=== PATIENT | female | born 1945 | race Caucasian/White ===

== ENCOUNTER 2017-04-30 06:57 | Emergency (ER) | payer OTHER, MEDICAID ==
[~2017-04-30] VITALS: Ht 152.4 cm; Wt 86.2 kg
[~2017-04-30 06:57] MED LIST: BENA20TA2 PO; METF1000 PO; PARO20TA51 PO
[2017-04-30 07:14] VITALS: BP_SYST 135
[2017-04-30] MEDS ORDERED: ONDANSETRON 4 MG ODT TAB PO ONE (07:15)
[2017-04-30] MEDS ORDERED: MORPHINE 4 MG/ML INJ. SYRINGE IVP ONE (08:45)
[2017-04-30 09:38] LABS: BASOPHILS % (AUTO) 0.5 % (0.0-2.0); EOSINOPHILS # (AUTO) 0.1 K/uL (0.0-0.4); HEMATOCRIT 39.5 % (36-48); HEMOGLOBIN 13.1 g/dL (12.0-16.0); LYMPHOCYTES # (AUTO) 0.9 K/uL (1.0-5.5); LYMPHOCYTES % (AUTO) 16.3 % (20.5-51.5); MEAN CORPUSCULAR HEMOGLOBIN 29 pg (27-31); MEAN CORPUSCULAR HGB CONC 33 % (32-36); MEAN CORPUSCULAR VOLUME 86 fL (79.0-98.0); MONOCYTES # (AUTO) 0.3 K/uL (0.0-1.0); MONOCYTES % (AUTO) 5.7 % (1.7-9.3); NEUTROPHILS % (AUTO) 75.5 % (40.0-70.0); PLATELET COUNT (AUTO) 312 K/uL (130-430); RED CELL DISTRIBUTION WIDTH 12.7 % (9.0-15.0); WHITE BLOOD COUNT (AUTO) 5.3 K/uL (4.8-10.8)
[2017-04-30 09:52] LABS: ALANINE AMINOTRANSFERASE 46 U/L (12-78); ALBUMIN 3.7 g/dL (3.4-4.8); AMYLASE 32 U/L (0-100); ANION GAP 11 (5-15); ASPARTATE AMINOTRANSFERASE 20 U/L (10-37); CALCIUM 9.5 mg/dL (8.4-11.0); CHLORIDE 105 mmol/L (98-107); CREATININE 0.58 mg/dL (0.55-1.30); GLUCOSE 184 mg/dL (70-99); LIPASE 62 U/L (73-393); POTASSIUM 3.5 mmol/L (3.5-5.1); PROTHROMBIN TIME 10.2 SECS (9.5-12.5); SODIUM SERUM 141 mmol/L (136-145); TOTAL BILIRUBIN 0.6 mg/dL (0.0-1.0); UREA NITROGEN, BLOOD 20 mg/dL (8-21)
[2017-04-30 09:59] LABS: BILIRUBIN,URINE NEGATIVE (NEGATIVE); BLOOD, URINE NEGATIVE (NEGATIVE); CLARITY/URINE SL HAZY (CLEAR); COLOR,URINE YELLOW (YELLOW); GLUCOSE,URINE NEGATIVE (NEGATIVE); KETONES,URINE 2+ (NEGATIVE); LEUKOCYTE ESTERASE ,URINE NEGATIVE (NEGATIVE); NITRITE, URINE NEGATIVE (NEGATIVE); PROTEIN URINE TRACE (NEGATIVE); UROBILINOGEN,URINE 0.2 (0.2-1.0)
[2017-04-30 10:45] VITALS: BP_SYST 134
== END 2017-04-30 10:45 | disposition home or self-care (01) ==
LOC: SED 06:57
DX: K42.9 Umbilical hernia without obstruction or gangrene (principal); N83.209 Unspecified ovarian cyst, unspecified side; R10.13 Epigastric pain; E11.9 Type 2 diabetes mellitus without complications
CPT/HCPCS: 36415; 74176; 80053; 81003; 82150; 83690; 84484; 85025; 85610; 85730; 96374; 99285; J2270; Q0162

== ENCOUNTER 2017-06-20 10:49 | Inpatient (IN) | payer OTHER, MEDICAID ==
[~2017-06-20] VITALS: Ht 154.9 cm; Wt 81.6 kg
[~2017-06-20 10:49] MED LIST changes: +PARO-63 PO; -PARO20TA51 PO
[2017-06-20 11:00] VITALS: BP_SYST 163
[2017-06-20] MEDS ORDERED: NACL 0.9% 1,000 ML IV ONE (11:22)
[2017-06-20 11:48] LABS: BASOPHILS % (AUTO) 0.4 % (0.0-2.0); EOSINOPHILS # (AUTO) 0.1 K/uL (0.0-0.4); EOSINOPHILS % (AUTO) 1.6 % (0.0-4.0); HEMATOCRIT 40.7 % (36-48); HEMOGLOBIN 13.5 g/dL (12.0-16.0); LYMPHOCYTES # (AUTO) 0.9 K/uL (1.0-5.5); LYMPHOCYTES % (AUTO) 11.1 % (20.5-51.5); MEAN CORPUSCULAR HEMOGLOBIN 29 pg (27-31); MEAN CORPUSCULAR HGB CONC 33 % (32-36); MEAN CORPUSCULAR VOLUME 88 fL (79.0-98.0); MONOCYTES # (AUTO) 0.3 K/uL (0.0-1.0); MONOCYTES % (AUTO) 3.8 % (1.7-9.3); NEUTROPHILS # (AUTO) 6.7 K/uL (1.8-7.7); NEUTROPHILS % (AUTO) 83.1 % (40.0-70.0); PLATELET COUNT (AUTO) 293 K/uL (130-430); RED BLOOD CELL COUNT(AUTO) 4.64 MIL/uL (4.2-6.2); RED CELL DISTRIBUTION WIDTH 12.6 % (9.0-15.0)
[2017-06-20 11:57] LABS: PROTHROMBIN TIME 9.9 SECS (9.5-12.5)
[2017-06-20 12:14] LABS: ANION GAP 9 (5-15); CALCIUM 10.1 mg/dL (8.4-11.0); CHLORIDE 103 mmol/L (98-107); GLUCOSE 163 mg/dL (70-99); SODIUM SERUM 139 mmol/L (136-145); UREA NITROGEN, BLOOD 17 mg/dL (8-21)
[2017-06-20 12:19] LABS: ALANINE AMINOTRANSFERASE 25 U/L (12-78); ALBUMIN 3.8 g/dL (3.4-4.8); ASPARTATE AMINOTRANSFERASE 19 U/L (10-37); TOTAL BILIRUBIN 0.3 mg/dL (0.0-1.0)
[2017-06-20] MEDS ORDERED: fentaNYL CITRATE/PF 100 MCG/2 ML AMP IVP ONE (12:30)
[2017-06-20] MEDS ORDERED: ONDANSETRON HCL 4 MG/2 ML VIAL IVP ONE ×2 (12:30→13:00)
[2017-06-20] MEDS ORDERED: TYC3 PO (12:36)
[2017-06-20] MEDS ORDERED: ONDA4TAB22 PO (12:36)
[2017-06-20] MEDS ORDERED: GLIM2TAB2 PO (12:36)
[2017-06-20] MEDS ORDERED: ONDANSETRON HCL 4 MG/2 ML VIAL ONE (12:51)
[2017-06-20 12:57] LABS: BILIRUBIN,URINE NEGATIVE (NEGATIVE); BLOOD, URINE NEGATIVE (NEGATIVE); CLARITY/URINE CLEAR (CLEAR); COLOR,URINE YELLOW (YELLOW); GLUCOSE,URINE NEGATIVE (NEGATIVE); KETONES,URINE NEGATIVE (NEGATIVE); LEUKOCYTE ESTERASE ,URINE NEGATIVE (NEGATIVE); NITRITE, URINE NEGATIVE (NEGATIVE); PH,URINE 5.5 (5.0-8.0); PROTEIN URINE NEGATIVE (NEGATIVE); UROBILINOGEN,URINE 0.2 (0.2-1.0)
[2017-06-20] MEDS ORDERED: ACETAMINOPHEN 325 MG TABLET PO PRN (13:00)
[2017-06-20] MEDS ORDERED: DOCUSATE SODIUM 100 MG CAPSULE PO PRN (13:00)
[2017-06-20] MEDS ORDERED: MAGNESIUM SULFATE 50 ML IV PRN (13:00)
[2017-06-20] MEDS ORDERED: POTASSIUM CHLORIDE 20 MEQ TAB.PRT.SR PO PRN (13:00)
[2017-06-20] MEDS ORDERED: DEXTROSE 50% JECT 50 ML DISP.SYRIN IVP PRN (13:00)
[2017-06-20] MEDS ORDERED: MORPHINE 2 MG/ML INJ. SYRINGE IVP PRN (13:00)
[2017-06-20] MEDS ORDERED: ZOLPIDEM TARTRATE 5 MG TABLET PO PRN (13:00)
[2017-06-20] MEDS ORDERED: MUPIROCIN 2% TOPICAL OINTMENT 22 GM NS PRN (13:00)
[2017-06-20] MEDS ORDERED: METOPROLOL TARTRATE 5 MG/5 ML VIAL IVP PRN (13:00)
[2017-06-20 13:49] VITALS: BP_SYST 165
[2017-06-20] MEDS: D5NS 1,000 ML IV SCH (14:02)
[2017-06-20 16:00] VITALS: BP_SYST 146
[2017-06-20] MEDS ORDERED: MORPHINE 2 MG/ML INJ. SYRINGE ONE (16:30)
[2017-06-20] MEDS ORDERED: MORPHINE 4 MG/ML INJ. SYRINGE IVP PRN (16:30)
[2017-06-20] MEDS: MORPHINE SULFATE 10 MG/ML VIAL IVP PRN (20:07)
[2017-06-20] MEDS: LORazepam 2 MG/ML VIAL IVP PRN (20:55)
[2017-06-21 01:17] VITALS: BP_SYST 143
[2017-06-21] MEDS: ONDANSETRON HCL 4 MG/2 ML VIAL IVP PRN ×3 (02:02→10:01)
[2017-06-21] MEDS: MORPHINE 2 MG/ML INJ. SYRINGE IVP PRN (02:02)
[2017-06-21] MEDS: D5NS 1,000 ML IV SCH (02:04)
[2017-06-21] MEDS: MORPHINE SULFATE 10 MG/ML VIAL IVP PRN (02:55)
[2017-06-21] MEDS: LORazepam 2 MG/ML VIAL IVP PRN (03:39)
[2017-06-21] MEDS ORDERED: MORPHINE 4 MG/ML INJ. SYRINGE IVP PRN ×2 (04:30)
[2017-06-21] MEDS ORDERED: MORPHINE SULFATE 10 MG/ML VIAL IVP PRN (05:00)
[2017-06-21] MEDS ORDERED: PIPERACILLIN/TAZOBACTAM 3.375 GM/VIAL (ZOSYN) IV ONE (05:19)
[2017-06-21] MEDS: PIPERACILLIN/TAZO 3.375/DEX-IS 50 ML IV SCH ×3 (05:36→18:35)
[2017-06-21] MEDS ORDERED: ONDANSETRON HCL 4 MG/2 ML VIAL IVP ONE (06:30)
[2017-06-21 06:33] LABS: ANION GAP 11 (5-15); CALCIUM 9.2 mg/dL (8.4-11.0); CHLORIDE 103 mmol/L (98-107); CREATININE 0.42 mg/dL (0.55-1.30); GLUCOSE 234 mg/dL (70-99); SODIUM SERUM 138 mmol/L (136-145); UREA NITROGEN, BLOOD 11 mg/dL (8-21)
[2017-06-21 06:34] LABS: BASOPHILS # (AUTO) 0.1 K/uL (0.0-0.2); BASOPHILS % (AUTO) 0.4 % (0.0-2.0); EOSINOPHILS # (AUTO) 0.1 K/uL (0.0-0.4); EOSINOPHILS % (AUTO) 0.4 % (0.0-4.0); HEMATOCRIT 42.4 % (36-48); HEMOGLOBIN 14.1 g/dL (12.0-16.0); LYMPHOCYTES # (AUTO) 0.5 K/uL (1.0-5.5); LYMPHOCYTES % (AUTO) 4.1 % (20.5-51.5); MEAN CORPUSCULAR HEMOGLOBIN 29 pg (27-31); MEAN CORPUSCULAR HGB CONC 33 % (32-36); MEAN CORPUSCULAR VOLUME 87 fL (79.0-98.0); MONOCYTES % (AUTO) 7.7 % (1.7-9.3); NEUTROPHILS # (AUTO) 11.4 K/uL (1.8-7.7); NEUTROPHILS % (AUTO) 87.4 % (40.0-70.0); PLATELET COUNT (AUTO) 311 K/uL (130-430); RED CELL DISTRIBUTION WIDTH 12.6 % (9.0-15.0); WHITE BLOOD COUNT (AUTO) 13.1 K/uL (4.8-10.8)
[2017-06-21] MEDS ORDERED: HYDROmorphone 2 MG/ML VIAL ONE (07:35)
[2017-06-21] MEDS ORDERED: HYDROmorphone 2 MG/ML VIAL IVP PRN (08:00)
[2017-06-21] MEDS ORDERED: POTASSIUM CHLORIDE 40 MEQ, LIDOCAINE JECT 2% PF 100 MG 50 MG in NS 250 ML IV ONE (08:00)
[2017-06-21 08:01] VITALS: BP_SYST 142
[2017-06-21] MEDS ORDERED: METOCLOPRAMIDE HCL 10 MG/2 ML VIAL IVP ONE ×2 (08:15→17:45)
[2017-06-21] MEDS: INSULIN ASPART 100 UNITS/ML, 10 ML VIAL (NovoLOG) SUBCUT PRN ×3 (11:11→21:17)
[2017-06-21 12:16] VITALS: BP_SYST 135
[2017-06-21] MEDS: METOCLOPRAMIDE HCL 10 MG/2 ML VIAL IVP SCH ×2 (14:12→21:11)
[2017-06-21] MEDS ORDERED: POLYMYXIN 500,000/BACIT.10,000 UNITS in NS IRR 1 L IR ONE (14:17)
[2017-06-21] MEDS ORDERED: KCL 40mEq in D5/0.45NS 1000 mL 1,000 ML IV SCH (16:00)
[2017-06-21] MEDS ORDERED: LR 1,000 ML IV ONE (16:09)
[2017-06-21] MEDS ORDERED: NALBUPHINE HCL 10 MG/ML AMP IVP PRN (16:15)
[2017-06-21] MEDS ORDERED: fentaNYL CITRATE/PF 100 MCG/2 ML AMP IVP PRN (16:15)
[2017-06-21] MEDS ORDERED: DIPHENHYDRAMINE INJ 50 MG/ML VIAL IVP PRN (16:15)
[2017-06-21] MEDS ORDERED: ePHEDrine sulfate 50 MG/ML VIAL IVP PRN (16:15)
[2017-06-21] MEDS ORDERED: NALOXONE HCL 0.4 MG/ML AMP (NARCAN) IVP PRN (16:15)
[2017-06-21] MEDS ORDERED: ONDANSETRON HCL 4 MG/2 ML VIAL IVP PRN ×2 (16:15)
[2017-06-21] MEDS ORDERED: LR 1,000 ML IV.SOLN IV ONE (17:45)
[2017-06-21] MEDS ORDERED: SEVOFLURANE 15 MIN GAS INH ONE (17:45)
[2017-06-21] MEDS ORDERED: BUPIVACAINE LIPOSOME/PF 266 MG/20 ML VIAL INFIL ONE (17:45)
[2017-06-21] MEDS ORDERED: ROCURONIUM BROMIDE 10 MG/ML (ZEMURON) IV ONE (17:45)
[2017-06-21] MEDS ORDERED: BUPIVACAINE /PF 0.5% 30 ML VIAL INJ ONE (17:45)
[2017-06-21] MEDS ORDERED: GLYCOPYRROLATE 0.2 MG/ML VIAL IJ ONE (17:45)
[2017-06-21] MEDS ORDERED: fentaNYL CITRATE/PF 100 MCG/2 ML AMP IVP ONE (17:45)
[2017-06-21] MEDS ORDERED: MIDAZOLAM HCL 5 MG/ML VIAL (VERSED) IV ONE (17:45)
[2017-06-21] MEDS ORDERED: PROPOFOL 200MG/ 20ML VIAL (DIPRIVAN) IV ONE (17:45)
[2017-06-21] MEDS ORDERED: NS IRRIG SOLN 1000 ML IR ONE (17:45)
[2017-06-21 18:26] VITALS: BP_SYST 148
[2017-06-21 20:00] VITALS: BP_SYST 134
[2017-06-21] MEDS: DOCUSATE SODIUM 100 MG CAPSULE PO SCH (21:11)
[2017-06-21] MEDS: BENZOCAINE/MENTHOL 1 EACH LOZENGE MM PRN (21:25)
[2017-06-21 22:33] VITALS: BP_SYST 148
[2017-06-22] MEDS: PIPERACILLIN/TAZO 3.375/DEX-IS 50 ML IV SCH ×4 (00:01→18:02)
[2017-06-22] MEDS: ONDANSETRON HCL 4 MG/2 ML VIAL IVP PRN (00:09)
[2017-06-22 01:41] VITALS: BP_SYST 130
[2017-06-22] MEDS: METOCLOPRAMIDE HCL 10 MG/2 ML VIAL IVP SCH (05:14)
[2017-06-22 06:14] LABS: HEMATOCRIT 34.4 % (36-48); HEMOGLOBIN 11.3 g/dL (12.0-16.0); MEAN CORPUSCULAR HEMOGLOBIN 29 pg (27-31); MEAN CORPUSCULAR HGB CONC 33 % (32-36); MEAN CORPUSCULAR VOLUME 88 fL (79.0-98.0); PLATELET COUNT (AUTO) 233 K/uL (130-430); RED BLOOD CELL COUNT(AUTO) 3.93 MIL/uL (4.2-6.2); RED CELL DISTRIBUTION WIDTH 12.5 % (9.0-15.0)
[2017-06-22 06:15] LABS: ANION GAP 3 (5-15); CALCIUM 8.8 mg/dL (8.4-11.0); CHLORIDE 110 mmol/L (98-107); CREATININE 0.58 mg/dL (0.55-1.30); GLUCOSE 209 mg/dL (70-99); POTASSIUM 4.1 mmol/L (3.5-5.1); SODIUM SERUM 139 mmol/L (136-145); UREA NITROGEN, BLOOD 11 mg/dL (8-21)
[2017-06-22] MEDS: BENZOCAINE/MENTHOL 1 EACH LOZENGE MM PRN (06:29)
[2017-06-22] MEDS: INSULIN ASPART 100 UNITS/ML, 10 ML VIAL (NovoLOG) SUBCUT PRN (06:32)
[2017-06-22 08:00] VITALS: BP_SYST 103
[2017-06-22 08:28] LABS: BAND % (MANUAL) 3 % (0-6); LYMPHOCYTES % (MANUAL) 9 % (20-46)
[2017-06-22 12:33] VITALS: BP_SYST 123
[2017-06-22] MEDS: DOCUSATE SODIUM 100 MG CAPSULE PO SCH ×2 (12:35→21:00)
[2017-06-22] MEDS: HYDROcodone/ACETAMIN 5-325 MG TAB (NORCO/ VICODIN) PO PRN ×2 (13:26→21:00)
[2017-06-22 16:16] VITALS: BP_SYST 131
[2017-06-22 20:00] VITALS: BP_SYST 133
[2017-06-22 22:42] VITALS: BP_SYST 145
[2017-06-23] MEDS: PIPERACILLIN/TAZO 3.375/DEX-IS 50 ML IV SCH ×3 (00:13→12:19)
[2017-06-23 08:00] VITALS: BP_SYST 150
[2017-06-23 08:18] LABS: BASOPHILS # (AUTO) 0.1 K/uL (0.0-0.2); BASOPHILS % (AUTO) 1.2 % (0.0-2.0); EOSINOPHILS # (AUTO) 0.3 K/uL (0.0-0.4); EOSINOPHILS % (AUTO) 3.7 % (0.0-4.0); HEMATOCRIT 36.5 % (36-48); HEMOGLOBIN 12.1 g/dL (12.0-16.0); LYMPHOCYTES # (AUTO) 1.2 K/uL (1.0-5.5); LYMPHOCYTES % (AUTO) 18.4 % (20.5-51.5); MEAN CORPUSCULAR HEMOGLOBIN 29 pg (27-31); MEAN CORPUSCULAR HGB CONC 33 % (32-36); MEAN CORPUSCULAR VOLUME 88 fL (79.0-98.0); MONOCYTES # (AUTO) 0.6 K/uL (0.0-1.0); MONOCYTES % (AUTO) 8.2 % (1.7-9.3); NEUTROPHILS # (AUTO) 4.6 K/uL (1.8-7.7); NEUTROPHILS % (AUTO) 68.5 % (40.0-70.0); PLATELET COUNT (AUTO) 246 K/uL (130-430); RED BLOOD CELL COUNT(AUTO) 4.15 MIL/uL (4.2-6.2); RED CELL DISTRIBUTION WIDTH 12.6 % (9.0-15.0); WHITE BLOOD COUNT (AUTO) 6.8 K/uL (4.8-10.8)
[2017-06-23 08:34] LABS: ANION GAP 4 (5-15); CALCIUM 9.2 mg/dL (8.4-11.0); CHLORIDE 105 mmol/L (98-107); CREATININE 0.57 mg/dL (0.55-1.30); GLUCOSE 167 mg/dL (70-99); SODIUM SERUM 137 mmol/L (136-145); UREA NITROGEN, BLOOD 9 mg/dL (8-21)
[2017-06-23] MEDS: BENZOCAINE/MENTHOL 1 EACH LOZENGE MM PRN (08:38)
[2017-06-23] MEDS: DOCUSATE SODIUM 100 MG CAPSULE PO SCH (08:38)
[2017-06-23 08:39] LABS: POTASSIUM 3.4 mmol/L (3.5-5.1)
[2017-06-23] MEDS: MORPHINE 2 MG/ML INJ. SYRINGE IVP PRN (08:40)
[2017-06-23] MEDS ORDERED: BACTROBAN NS (10:52)
[2017-06-23] MEDS ORDERED: SSNOVOLOG SUBCUT (10:52)
[2017-06-23] MEDS ORDERED: HYDR-1189 PO (10:52)
[2017-06-23] MEDS ORDERED: DOCU-144 PO (10:52)
[2017-06-23] MEDS ORDERED: IPRA3AMP9 INH (10:53)
[2017-06-23] MEDS ORDERED: guaiFENesin/DEXTROMETHORPHAN 118 ML PO PRN (12:15)
[2017-06-23 12:36] VITALS: BP_SYST 151
[2017-06-23 12:37] VITALS: BP_SYST 131
[2017-06-23 14:20] VITALS: BP_SYST 131
== END 2017-06-23 15:55 | DRG 354 ==
LOC: SED 10:49 → SMU 12:25
PROVIDERS: ADMIT General Practice; ATTEND General Practice
PROC: 0WUF0JZ Supplement Abdominal Wall with Synthetic Substitute, Open Approach (ICD-10-PCS; principal; 2017-06-21 15:00)
DX: K43.6 Other and unspecified ventral hernia with obstruction, without gangrene (principal); R71.0 Precipitous drop in hematocrit; K31.84 Gastroparesis; E11.43 Type 2 diabetes mellitus with diabetic autonomic (poly)neuropathy; K57.90 Diverticulosis of intestine, part unspecified, without perforation or abscess without bleeding; N83.201 Unspecified ovarian cyst, right side; E87.6 Hypokalemia; I10 Essential (primary) hypertension; M47.816 Spondylosis without myelopathy or radiculopathy, lumbar region; Z88.5 Allergy status to narcotic agent; Z83.3 Family history of diabetes mellitus; Z79.4 Long term (current) use of insulin
CPT/HCPCS: 36415; 71045; 76856-TC; 80048; 80053; 81003; 82962; 83690-TC; 83735-TC; 85007; 85025; 85027; 85610-TC; 85730-TC; 86886; 86900; 86901; 87081; 88302; 93005; 96374; 96375; 97110-GP; 97116-GP; 97530-GP; 99285; C9290; J1170; J1815; J2060; J2250; J2270; J2405; J2543; J2704; J2765; J3010; J3475; J3480; J3490; J7042; J7050; J7120; Q4104